=== PATIENT | female | born 1985 | race Caucasian/White ===

== ENCOUNTER 2018-05-30 13:58 | Observation (INO) | payer OTHER ==
[~2018-05-30] VITALS: Ht 154.9 cm; Wt 77.3 kg
[2018-05-30] VITALS (8 sets, daily range): BP systolic 121–135; BP diastolic 64–90; PULSE 78–89; TEMP 98.4–98.8
[~2018-05-30 13:58] MED LIST: AMOXICILLIN 50500 MG PO; CEFTIN250 M1 PO; FLEXERIL 1010 MG/TAB PO; MACROBID 1100 MG/CAP PO; NO HOME MEDICATIONS; NORCO 325 MG-51 TAB PO; PRENATAL1 TA1 PO
[2018-05-30 14:37] LABS: COLLECTION METHOD CLEAN CATCH
[2018-05-30 15:02] LABS: MUCOUS Present /lpf; PH 7 (5-8); URINE APPEARANCE Clear; URINE BACTERIA None Seen /hpf; URINE BILIRUBIN Negative (NEGATIVE); URINE BLOOD Negative (NEGATIVE); URINE COLOR Yellow; URINE GLUCOSE Negative (NEGATIVE); URINE KETONE Negative (NEGATIVE); URINE LEUKOCYTE ESTERASE Negative (NEGATIVE); URINE NITRATE Negative (NEGATIVE); URINE PROTEIN(semi-quant) Negative (NEGATIVE); URINE RBC 0-2 /hpf; URINE UROBILINOGEN Negative (NEGATIVE)
--- NOTE | 2018-05-30 17:42 | NUR ---
6781 PATIENT HERE FROM ER. ASSESSMENT COMPLETED. LUNGS CLEAR,BS + IN ALL 4 QUADS. NO EDEMA. PAIN ON RIGHT LOWER ABDOMEN. DR ORANTES AT BEDSIDE TO DISCUSS SURGERY AT THIS TIME. VERBAL UNDERSTANDIN NOTED. LR 1000CC HUNG AT THIS TIME. AND CONSENTS SIGNED. PATIENT READY FOR OR AT THIS TIME.
--- NOTE | 2018-05-30 19:30 | NUR ---
Pt off unit to OR.
[2018-05-30] MEDS ORDERED: PERCOCET 325 MG1 TA2 PO (20:32)
[2018-05-30] MEDS ORDERED: MOTRIN 600600 MG/TAB PO (20:33)
[2018-05-30] MEDS ORDERED: COLACE 100100 MG/CAP PO (20:33)
[2018-05-31 01:00] VITALS: BP 127/71; PULSE 81
--- NOTE | 2018-05-31 07:30 | NUR ---
7530- Pt states she took the tubing off her IV because "it was empty." Pt encouraged call out next time for assistance. Pt states she is ready to go home and asks when MD will be here. Informed that they do not have a specific time they round. Pt ambulating and tolerating PO well.
[2018-05-31 07:34] VITALS: BP 118/67; PULSE 75; TEMP 98.5
--- NOTE | 2018-05-31 10:33 | NUR ---
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
[2018-05-31] MEDS ORDERED: Work Release (12:07)
--- NOTE | 2018-05-31 12:50 | NUR ---
1250- Pt ambulates off unit in stable condition with KAYCE Aquino.
== END 2018-05-31 12:50 | disposition home or self-care (01) ==
LOC: COL.ER 13:58 → SDCO 16:31 → OB 17:10
PROVIDERS: Physician Assistant; ADMIT Surgery
DX: K35.80 Unspecified acute appendicitis (principal); F17.210 Nicotine dependence, cigarettes, uncomplicated; Z90.49 Acquired absence of other specified parts of digestive tract
CPT/HCPCS: G0378; J0690; J1100; J1885; J2405; J2704; J3010; J7030; J7120; Q9967

== ENCOUNTER 2019-01-20 21:30 | Emergency (ER) | payer SELFPAY ==
[~2019-01-20] VITALS: Ht 154.9 cm; Wt 76.8 kg
[~2019-01-20 21:30] MED LIST changes: +COLACE 100100 MG/CAP PO; +MOTRIN 600600 MG/TAB PO; +PERCOCET 325 MG1 TA2 PO; +Work Release
[2019-01-20 23:38] LABS: BASO # 0.1 (0.0-0.2); BASO % 0.8 % (0.0-2.0); EOS # 0.1 (0.0-0.7); GRAN # 7.2 (1.4-6.5); GRAN % 65.5 % (42.2-75.2); HEMATOCRIT 42.4 % (37.0-47.0); HEMOGLOBIN 14.7 g/dl (12.5-16.0); LYMPH # 2.6 (1.2-3.4); LYMPH % 24.2 % (20.0-51.0); MEAN CELL VOLUME 92 fl (80.0-100.0); MEAN CORPUSCULAR HEMOGLOBIN 32 pg (27.0-31.0); MEAN CORPUSCULAR HGB CONC 35 g/dl (33.0-37.0); MEAN PLATELET VOLUME 9.7 fl (7.4-10.4); MONO # 0.9 (0.1-0.6); PLATELET COUNT 257 K/mm3 (130-400); RED BLOOD COUNT 4.62 M/mm3 (4.10-5.30); REDCELL DISTRIBUTION WIDTH-CV 12.2 % (11.5-14.5)
[2019-01-20 23:43] LABS: ALBUMIN 4.6 gm/dL (3.5-5.0); BILIRUBIN,TOTAL 0.9 mg/dL (0.0-1.0); CALCIUM 9.4 mg/dL (8.4-10.2); CREATININE, serum 0.71 (0.52-1.25); POTASSIUM 4.2 mmol/L (3.4-5.0); TOTAL PROTEIN 7.6 gm/dL (6.4-8.2)
[2019-01-21 01:12] LABS: COLLECTION METHOD CATHETER
[2019-01-21 01:20] LABS: MUCOUS Present /lpf; PH 5 (5-8); SQUAMOUS EPITHELIAL 0-2 /hpf; URINE APPEARANCE Hazy; URINE BACTERIA None Seen /hpf; URINE BILIRUBIN Negative (NEGATIVE); URINE BLOOD Negative (NEGATIVE); URINE COLOR Yellow; URINE GLUCOSE Negative (NEGATIVE); URINE KETONE Trace (NEGATIVE); URINE LEUKOCYTE ESTERASE 2+ (NEGATIVE); URINE NITRATE Negative (NEGATIVE); URINE PROTEIN(semi-quant) Negative (NEGATIVE); URINE UROBILINOGEN Negative (NEGATIVE)
[2019-01-21] MEDS ORDERED: MACROBID 1100 MG/CAP PO (01:47)
[2019-01-21] MEDS ORDERED: FLAGYL500 MG PO (01:47)
[2019-01-21 02:06] VITALS: BP 132/76; PULSE 89; TEMP 98.7
== END 2019-01-21 02:06 | disposition home or self-care (01) ==
LOC: COL.ER 21:30
PROVIDERS: Emergency Medicine
DX: A59.9 Trichomoniasis, unspecified (principal); N89.8 Other specified noninflammatory disorders of vagina; Z90.49 Acquired absence of other specified parts of digestive tract; Z98.890 Other specified postprocedural states; Z90.89 Acquired absence of other organs
CPT/HCPCS: J0696

== ENCOUNTER 2019-07-13 17:59 | Emergency (ER) | payer SELFPAY ==
[~2019-07-13] VITALS: Ht 154.9 cm; Wt 79.5 kg
[~2019-07-13 17:59] MED LIST changes: +FLAGYL500 MG PO
[2019-07-13 18:21] VITALS: TEMP 98.5
[2019-07-13] MEDS ORDERED: EXCEDRIN1 TAB PO (18:51)
[2019-07-13] MEDS ORDERED: TYLENOL 325MG325 MG PO (18:51)
[2019-07-13 19:23] LABS: COLLECTION METHOD CLEAN CATCH
[2019-07-13 19:28] LABS: BASO # 0.1 (0.0-0.2); BASO % 0.7 % (0.0-2.0); EOS # 0.2 (0.0-0.7); EOS % 1.8 % (0-4.0); GRAN # 6.1 (1.4-6.5); GRAN % 60.3 % (42.2-75.2); HEMOGLOBIN 14.6 g/dl (12.5-16.0); LYMPH % 30.1 % (20.0-51.0); MEAN CELL VOLUME 92 fl (80.0-100.0); MEAN CORPUSCULAR HEMOGLOBIN 31 pg (27.0-31.0); MEAN CORPUSCULAR HGB CONC 34 g/dl (33.0-37.0); MEAN PLATELET VOLUME 10.6 fl (7.4-10.4); MONO # 0.7 (0.1-0.6); MONO % 6.8 % (1.7-9.3); PLATELET COUNT 240 K/mm3 (130-400); RED BLOOD COUNT 4.66 M/mm3 (4.10-5.30); REDCELL DISTRIBUTION WIDTH-CV 11.9 % (11.5-14.5)
[2019-07-13 19:36] LABS: MUCOUS Present /lpf; PH 6 (5-8); SQUAMOUS EPITHELIAL 0-2 /hpf; URINE APPEARANCE Turbid; URINE BACTERIA Occasional /hpf; URINE BILIRUBIN Negative (NEGATIVE); URINE BLOOD 2+ (NEGATIVE); URINE COLOR Yellow; URINE GLUCOSE Negative (NEGATIVE); URINE KETONE Negative (NEGATIVE); URINE LEUKOCYTE ESTERASE 1+ (NEGATIVE); URINE NITRATE Negative (NEGATIVE); URINE PROTEIN(semi-quant) Negative (NEGATIVE)
[2019-07-13] MEDS ORDERED: OMNICEF 300MG300 MG PO (19:53)
[2019-07-13] MEDS ORDERED: FLEXERIL 1010 MG/TAB PO (19:53)
[2019-07-13 20:16] VITALS: BP 113/84; PULSE 72
== END 2019-07-13 20:21 | disposition home or self-care (01) ==
LOC: COL.ER 17:59
PROVIDERS: Emergency Medicine
DX: G44.209 Tension-type headache, unspecified, not intractable (principal); N39.0 Urinary tract infection, site not specified; F17.210 Nicotine dependence, cigarettes, uncomplicated; Z98.51 Tubal ligation status
CPT/HCPCS: J1885; J2405; J7030

== ENCOUNTER 2019-11-04 22:08 | Emergency (ER) | payer SELFPAY ==
[~2019-11-04] VITALS: Ht 154.9 cm; Wt 81.8 kg
[~2019-11-04 22:08] MED LIST changes: +EXCEDRIN1 TAB PO; +OMNICEF 300MG300 MG PO; +TYLENOL 325MG325 MG PO
[2019-11-04 22:27] VITALS: TEMP 98.7
[2019-11-04 23:12] LABS: COLLECTION METHOD CLEAN CATCH
[2019-11-04 23:23] LABS: MUCOUS Present /lpf; PH 5 (5-8); URINE APPEARANCE Hazy; URINE BACTERIA None Seen /hpf; URINE BILIRUBIN Negative (NEGATIVE); URINE BLOOD Negative (NEGATIVE); URINE COLOR Yellow; URINE GLUCOSE Negative (NEGATIVE); URINE KETONE Negative (NEGATIVE); URINE LEUKOCYTE ESTERASE 2+ (NEGATIVE); URINE NITRATE Negative (NEGATIVE); URINE PROTEIN(semi-quant) Negative (NEGATIVE); URINE UROBILINOGEN Negative (NEGATIVE)
[2019-11-04 23:41] LABS: BASO # 0.1 (0.0-0.2); BASO % 0.6 % (0.0-2.0); EOS # 0.1 (0.0-0.7); EOS % 0.9 % (0-4.0); GRAN # 10.8 (1.4-6.5); GRAN % 69.5 % (42.2-75.2); HEMATOCRIT 47.4 % (37.0-47.0); HEMOGLOBIN 16.2 g/dl (12.5-16.0); LYMPH # 3.3 (1.2-3.4); LYMPH % 21.3 % (20.0-51.0); MEAN CELL VOLUME 92 fl (80.0-100.0); MEAN CORPUSCULAR HEMOGLOBIN 31 pg (27.0-31.0); MEAN CORPUSCULAR HGB CONC 34 g/dl (33.0-37.0); MEAN PLATELET VOLUME 10.1 fl (7.4-10.4); MONO # 1.1 (0.1-0.6); MONO % 7.3 % (1.7-9.3); PLATELET COUNT 250 K/mm3 (130-400); RED BLOOD COUNT 5.18 M/mm3 (4.10-5.30); REDCELL DISTRIBUTION WIDTH-CV 12.2 % (11.5-14.5)
[2019-11-04] MEDS ORDERED: MACROBID 1100 MG/CAP PO (23:49)
[2019-11-04 23:54] LABS: ALBUMIN 3.7 gm/dL (3.5-5.0); BILIRUBIN,TOTAL 0.3 mg/dL (0.0-1.0); CALCIUM 8.5 mg/dL (8.4-10.2); CREATININE, serum 0.75 (0.52-1.25); POTASSIUM 3.9 mmol/L (3.4-5.0); TOTAL PROTEIN 6.1 gm/dL (6.4-8.2)
[2019-11-05 00:26] VITALS: BP 120/76; PULSE 86
== END 2019-11-05 00:27 | disposition home or self-care (01) ==
LOC: COL.ER 22:08
PROVIDERS: Physician Assistant
DX: N39.0 Urinary tract infection, site not specified (principal); F17.290 Nicotine dependence, other tobacco product, uncomplicated; Z32.02 Encounter for pregnancy test, result negative; Z90.49 Acquired absence of other specified parts of digestive tract
CPT/HCPCS: J0696; J2405